=== PATIENT | female | born 1945 | race Caucasian/White ===

== ENCOUNTER → 2018-05-26 | Outpatient (CLI) | payer MEDICARE | END | disposition home or self-care (01) | LOC: CVU 12:49 | PROVIDERS: ATTEND Internal Medicine Cardiovascular Disease | DX: Z01.810 Encounter for preprocedural cardiovascular examination (principal); R60.0 Localized edema; L81.9 Disorder of pigmentation, unspecified; M79.7 Fibromyalgia | CPT/HCPCS: 93970 ==